=== PATIENT | female | born 1990 | race American Indian/Alaskan Native ===

== ENCOUNTER 2018-11-12 23:25 | Emergency (ER) | payer OTHER ==
[2018-11-12 23:31] VITALS: BP 153/85
[2018-11-13] MEDS ORDERED: DELTASONE PO ONE (00:45)
[2018-11-13] MEDS ORDERED: PERCOCET 5/325 PO PRN (00:45)
[2018-11-13] MEDS ORDERED: TORADOL IM ONE (00:45)
[2018-11-13] MEDS ORDERED: ZOFRAN ODT PO ONE (00:45)
[2018-11-13] MEDS ORDERED: AUGMENTIN 875 MG PO ONE (00:45)
--- NOTE | 2018-11-13 01:36 | Emergency Department Report ---
ED General Adult HPI - General Chief complaint: Dental/Oral Stated complaint: TOOTHACHE Time Seen by Provider: 11/13/18 00:30 Source: patient Mode of arrival: Ambulatory Limitations: No Limitations - History of Present Illness Initial comments: Patient is a 28-year-old -Stateless female with a history of chronic dental and gum disease presents to the ED with acute exacerbation of chronic dental pain for the last 1 week. Patient states that she has had these dental problems for over 9 months and has never seen any dentist. Patient denies feve r, chills, nausea, vomiting, sore throat, headache, chest pain, shortness of breath, change in vision or neck pain. Patient states that she has been taking [id number] remedies for pain with no relief. MD Complaint: toothache and swollen gum -: Gradual, week(s) (1) Location: mouth Radiation: non-radiation Severity scale (0 -10): 8 Quality: aching, sharp Consistency: constant Improves with: none Worsens with: none Associated Symptoms: denies other symptoms, headaches, loss of appetite. denies: confusion, chest pain, cough, diaphoresis, fever/chills, malaise, nausea/vomiting, shortness of breath, syncope, weakness Treatments Prior to Arrival: NSAID - Related Data Previous Rx's Medication Instructions Recorded Last Taken Type Acetaminophen/Codeine [Tylenol 1 tab PO Q6H PRN #10 tab 11/13/18 Unknown Rx /Codeine # 3 tab] Clindamycin [Clindamycin CAP] 300 mg PO Q8HR #60 capsule 11/13/18 Unknown Rx Ketorolac [Toradol] 10 mg PO Q8H PRN #20 tablet 11/13/18 Unknown Rx Allergies Allergy/AdvReac Type Severity Reaction Status Date / Time No Known Allergies Allergy Unverified 11/12/18 23:30 ED Review of Systems ROS: Stated complaint: TOOTHACHE Other details as noted in HPI Constitutional: denies: chills, fever Eyes: denies: eye pain, eye discharge, vision change ENT: dental pain, other (swollen gums). denies: ear pain, throat pain Respiratory: denies: cough, shortness of breath, wheezing Cardiovascular: denies: chest pain, palpitations Endocrine: no symptoms reported Gastrointestinal: denies: abdominal pain, nausea, diarrhea Genitourinary: denies: urgency, dysuria, discharge Musculoskeletal: denies: back pain, joint swelling, arthralgia Skin: denies: rash, lesions Neurological: headache. denies: weakness, paresthesias Psychiatric: denies: anxiety, depression Hematological/Lymphatic: denies: easy bleeding, easy bruising ED Past Medical Hx - Past Medical History Previous Medical History?: Yes Hx Psychiatric Treatment: Yes (anxiety) Additional medical history: thyroid - Surgical History Past Surgical History?: No - Social History Smoking Status: Current Every Day Smoker Substance Use Type: None - Medications Home Medications: Home Medications Medication Instructions Recorded Confirmed Last Taken Type Acetaminophen/Codeine [Tylenol 1 tab PO Q6H PRN #10 tab 11/13/18 Unknown Rx /Codeine # 3 tab] Clindamycin [Clindamycin CAP] 300 mg PO Q8HR #60 capsule 11/13/18 Unknown Rx Ketorolac [Toradol] 10 mg PO Q8H PRN #20 tablet 11/13/18 Unknown Rx ED Physical Exam - General Limitations: No Limitations General appearance: alert, in no apparent distress - Head Head exam: Present: atraumatic, normocephalic, normal inspection - Eye Eye exam: Present: normal appearance, PERRL, EOMI Pupils: Present: normal accommodation - ENT ENT exam: Present: normal exam, normal orophraynx, mucous membranes moist, TM's normal bilaterally, normal external ear exam, other (Swollen left maxillary and mandibular gums with severe premolar and molar toothaches) - Neck Neck exam: Present: normal inspection, full ROM - Respiratory Respiratory exam: Present: normal lung sounds bilaterally. Absent: respiratory distress, wheezes, rales, stridor, chest wall tenderness, accessory muscle use, decreased breath sounds, prolonged expiratory - Cardiovascular Cardiovascular Exam: Present: regular rate, normal rhythm, normal heart sounds. Absent: systolic murmur, diastolic murmur, rubs, gallop - GI/Abdominal GI/Abdominal exam: Present: soft, normal bowel sounds. Absent: hyperactive bowel sounds, hypoactive bowel sounds, mass, bruit - Rectal Rectal exam: Present: deferred - Extremities Exam Extremities exam: Present: normal inspection, full ROM, normal capillary refill - Back Exam Back exam: Present: normal inspection, full ROM. Absent: tenderness, CVA tenderness (L), paraspinal tenderness, vertebral tenderness - Neurological Exam Neurological exam: Present: alert, oriented X3, CN II-XII intact, normal gait, reflexes normal - Psychiatric Psychiatric exam: Present: normal affect, normal mood - Skin Skin exam: Present: warm, dry, intact, normal color. Absent: rash ED Course Vital Signs 11/12/18 11/13/18 23:29 00:58 Temperature 98.8 F Pulse Rate 91 H Respiratory 16 16 Rate Blood Pressure 153/85 O2 Sat by Pulse 100 Oximetry - Reevaluation(s) Reevaluation #1: 11/13/18 01:40 This is a 28-year-old -Stateless female with a history of chronic dental issues and who presented to the ED with swollen gums on Thursday a toothache. In the ED the patient is alert and oriented 3 and is not in distress. Patient was treated for pain in the ED and discharged home on pain medications and antibiotics, and advised to follow-up with a dentist for further evaluation. Patient was advised to return to the ED immediately if the symptoms get worse. ED Medical Decision Making - Medical Decision Making This is a 28-year-old -Stateless female with a history of chronic dental issues and who presented to the ED with swollen gums on Thursday a toothache. In the ED the patient is alert and oriented 3 and is not in distress. Patient was treated for pain in the ED and discharged home on pain medications and antibiotics, and advised to follow-up with a dentist for further evaluation. Patient was advised to return to the ED immediately if the symptoms get worse. - Differential Diagnosis dental abscess, gingivitis, dental caries, sore throat, sinusitis Critical care attestation.: If time is entered above; I have spent that time in minutes in the direct care of this critically ill patient, excluding procedure time. ED Disposition Clinical Impression: Dental abscess, Chronic gingivitis, Dental caries Disposition: [id number] TO HOME OR SELFCARE Is pt being admited?: No Does the pt Need Aspirin: No Condition: Stable Instructions: Dental Abscess (ED), Dental Caries (ED), Gingivitis (ED) Additional Instructions: Take medications with food, drink plenty of fluids and follow-up with the dentist in 7-10 days for reevaluation. Return to the ED immediately if symptoms get worse. Prescriptions: Clindamycin [Clindamycin CAP] 300 mg PO Q8HR #60 capsule Ketorolac [Toradol] 10 mg PO Q8H PRN #20 tablet PRN Reason: Pain Acetaminophen/Codeine [Tylenol /Codeine # 3 tab] 1 tab PO Q6H PRN #10 tab PRN Reason: Pain , Severe (7-10) Referrals: [facility] [Outside] - 3-5 Days Time of Disposition: 01:33 Print Language: WELSH
== END 2018-11-13 01:45 | disposition home or self-care (01) ==
LOC: ED 23:25
DX: K04.7 Periapical abscess without sinus (principal); K02.9 Dental caries, unspecified; K05.10 Chronic gingivitis, plaque induced; F41.9 Anxiety disorder, unspecified; Z79.899 Other long term (current) drug therapy; F17.200 Nicotine dependence, unspecified, uncomplicated
CPT/HCPCS: 96372; 99282; J1885; J7512; Q0162

== ENCOUNTER 2018-11-29 10:16 | Emergency (ER) | payer OTHER ==
[2018-11-29 10:35] VITALS: BP 106/83
[2018-11-29] MEDS ORDERED: PERCOCET 5/325 PO ONE (12:01)
[2018-11-29] MEDS ORDERED: IBUPROFEN PO ONE (12:01)
--- NOTE | 2018-11-29 12:06 | Emergency Department Report ---
ED ENT HPI - General Chief complaint: Dental/Oral Stated complaint: TOOTHACHE Time Seen by Provider: 11/29/18 11:47 Source: patient Mode of arrival: Ambulatory Limitations: No Limitations - History of Present Illness Initial comments: Mrs. calzada was evaluated 2 weeks ago by my colleague here in emergency department for dental pain. She states that she has appointment tomorrow for tooth extraction. She has severe pain at left wisdom tooth. She's had dental issues for several months. No fever. Difficulty swallowing. No shortness distress. She is tearful in obvious discomfort. MD complaint: tooth pain -: Gradual, month(s) (several months) Location: tooth # (32) Severity: severe Quality: aching Consistency: constant Worsens with: eating Context- Dental: history of dental caries, poor dental care - Related Data Previous Rx's Medication Instructions Recorded Last Taken Type Acetaminophen/Codeine [Tylenol 1 tab PO Q6H PRN #10 tab 11/13/18 Unknown Rx /Codeine # 3 tab] Clindamycin [Clindamycin CAP] 300 mg PO Q8HR #60 capsule 11/13/18 Unknown Rx Ketorolac [Toradol] 10 mg PO Q8H PRN #20 tablet 11/13/18 Unknown Rx oxyCODONE /ACETAMINOPHEN [Percocet 1 tab PO Q6HR PRN #5 tablet 11/29/18 Unknown Rx 5/325] Allergies Allergy/AdvReac Type Severity Reaction Status Date / Time No Known Allergies Allergy Unverified 11/12/18 23:30 ED Dental HPI - General Chief complaint: Dental/Oral Stated complaint: TOOTHACHE Time Seen by Provider: 11/29/18 11:47 Source: patient Mode of arrival: Ambulatory Limitations: No Limitations - Related Data Previous Rx's Medication Instructions Recorded Last Taken Type Acetaminophen/Codeine [Tylenol 1 tab PO Q6H PRN #10 tab 11/13/18 Unknown Rx /Codeine # 3 tab] Clindamycin [Clindamycin CAP] 300 mg PO Q8HR #60 capsule 11/13/18 Unknown Rx Ketorolac [Toradol] 10 mg PO Q8H PRN #20 tablet 11/13/18 Unknown Rx oxyCODONE /ACETAMINOPHEN [Percocet 1 tab PO Q6HR PRN #5 tablet 11/29/18 Unknown Rx 5/325] Allergies Allergy/AdvReac Type Severity Reaction Status Date / Time No Known Allergies Allergy Unverified 11/12/18 23:30 ED Review of Systems ROS: Stated complaint: TOOTHACHE Other details as noted in HPI Constitutional: denies: fever, malaise ENT: dental pain. denies: ear pain, throat pain, hearing loss Respiratory: denies: shortness of breath Gastrointestinal: denies: nausea ED Past Medical Hx - Past Medical History Hx Psychiatric Treatment: Yes (anxiety) Additional medical history: thyroid - Surgical History Past Surgical History?: No - Social History Smoking Status: Current Some Day Smoker Substance Use Type: None - Medications Home Medications: Home Medications Medication Instructions Recorded Confirmed Last Taken Type Acetaminophen/Codeine [Tylenol 1 tab PO Q6H PRN #10 tab 11/13/18 Unknown Rx /Codeine # 3 tab] Clindamycin [Clindamycin CAP] 300 mg PO Q8HR #60 capsule 11/13/18 Unknown Rx Ketorolac [Toradol] 10 mg PO Q8H PRN #20 tablet 11/13/18 Unknown Rx oxyCODONE /ACETAMINOPHEN [Percocet 1 tab PO Q6HR PRN #5 tablet 11/29/18 Unknown Rx 5/325] ED Physical Exam - General Limitations: No Limitations General appearance: alert, in no apparent distress, other (nontoxic but tearful rocking in severe pain holding her left jaw) - Head Head exam: Present: atraumatic, normocephalic - Eye Eye exam: Present: normal appearance. Absent: scleral icterus, conjunctival injection Pupils: Absent: normal accommodation - ENT ENT exam: Present: mucous membranes moist, other (tooth #31-32 severe decay large enamel defect swelling) ED Course Vital Signs 11/29/18 10:34 Temperature 98.6 F Pulse Rate 96 H Respiratory 20 Rate Blood Pressure 106/83 O2 Sat by Pulse 98 Oximetry ED Medical Decision Making - Medical Decision Making Severe dental pain due to tooth fracture dental caries I provide a prescription for 5 tablets of Percocet considering she has appointment with dentist tomorrow Critical care attestation.: If time is entered above; I have spent that time in minutes in the direct care of this critically ill patient, excluding procedure time. ED Disposition Clinical Impression: Dental caries, Tooth fracture Disposition: TO HOME OR SELFCARE Is pt being admited?: No Does the pt Need Aspirin: No Condition: Stable Instructions: Dental Caries (ED), Toothache (ED) Prescriptions: oxyCODONE /ACETAMINOPHEN [Percocet 5/325] 1 tab PO Q6HR PRN #5 tablet PRN Reason: Pain Forms: Work/School Release Form(ED)
[2018-11-29] MEDS ORDERED: TORADOL IM ONE (12:17)
== END 2018-11-29 12:43 | disposition home or self-care (01) ==
LOC: ED 10:16
DX: K02.9 Dental caries, unspecified (principal); K03.81 Cracked tooth; F41.9 Anxiety disorder, unspecified; F17.200 Nicotine dependence, unspecified, uncomplicated; Z79.899 Other long term (current) drug therapy
CPT/HCPCS: 96372; 99282; J1885

== ENCOUNTER 2019-04-06 11:52 | Emergency (ER) | payer OTHER | END 2019-04-06 19:07 | disposition home or self-care (01) | LOC: ED 11:52 | CPT/HCPCS: 36415; 71046; 74177; 76700; 80053; 81001; 82140; 84703; 85025; 87040; 96365; 96375; 99284; J1200; J2270; J2405; J2543; J7030; Q9967; 87076 ==

== ENCOUNTER 2019-04-07 10:33 | Emergency (ER) | payer OTHER ==
--- NOTE | 2019-04-07 14:18 | Emergency Department Report ---
Blank Doc - Documentation Documentation: i was called by lab stating that pt has positive blood cultures I informed KRISTEL Jerome he is locating pts chart and looking for a room
== END 2019-04-08 02:39 ==
LOC: ED 10:33
DX: R07.81 Pleurodynia (principal); Z53.21 Procedure and treatment not carried out due to patient leaving prior to being seen by health care provider